=== PATIENT | female | born 1950 | race Caucasian/White ===

== ENCOUNTER 2019-08-29 11:40 | Outpatient (RCR) | payer MEDICARE, OTHER ==
[2019-07-13 13:00] VITALS: BP 135/72
[2019-07-13] MEDS: cefTRIAXone 1,000 MG/SWFI 10 ML IV PUSH IV SCH ×2 (14:11)
[2019-07-13 14:32] LABS: HEMOGLOBIN 11.7 G/DL (11.5-16.0); MEAN PLATELET VOLUME 10.1 FL (7.4-10.4); RED CELL DISTRIBUTION WIDTH 12.4 % (10.0-14.5); WHITE BLOOD COUNT 4.7 10^3/uL (4.3-11.0)
[2019-07-13 14:49] LABS: ALANINE AMINOTRANSFERASE 10 U/L (0-55); ALBUMIN 3.5 GM/DL (3.2-4.5); ALKALINE PHOSPHATASE 49 U/L (40-136); BILIRUBIN,TOTAL 0.3 MG/DL (0.1-1.0); BUN/CREATININE RATIO 13; CALCIUM 8.7 MG/DL (8.5-10.1); CARBON DIOXIDE 27 MMOL/L (21-32); CHLORIDE 107 MMOL/L (98-107); CREATININE SERUM 0.64 MG/DL (0.60-1.30); GFR ESTIMATED > 60; GLUCOSE 91 MG/DL (70-105); POTASSIUM 3.4 MMOL/L (3.6-5.0); SODIUM 141 MMOL/L (135-145)
[2019-07-14] MEDS: cefTRIAXone 1,000 MG/SWFI 10 ML IV PUSH IV SCH ×2 (09:40)
[2019-07-14 09:43] VITALS: BP 127/76
[2019-07-15 09:41] VITALS: BP 134/82
[2019-07-15] MEDS: cefTRIAXone 1,000 MG/SWFI 10 ML IV PUSH IV SCH ×2 (09:43)
[2019-07-16 09:15] VITALS: BP 135/81
[2019-07-16] MEDS: cefTRIAXone 1,000 MG/SWFI 10 ML IV PUSH IV SCH ×2 (09:16)
[2019-07-17] MEDS: cefTRIAXone 1,000 MG/SWFI 10 ML IV PUSH IV SCH ×2 (09:05)
[2019-07-17 09:15] VITALS: BP 131/83
[2019-07-18 13:35] VITALS: BP 115/62
[2019-07-18] MEDS: cefTRIAXone 1,000 MG/SWFI 10 ML IV PUSH IV SCH ×2 (13:46)
[2019-07-19] MEDS: cefTRIAXone 1,000 MG/SWFI 10 ML IV PUSH IV SCH ×2 (13:26)
[2019-07-19 13:31] VITALS: BP 136/84
[2019-07-20 11:19] VITALS: BP 114/66
[2019-07-20] MEDS: cefTRIAXone 1,000 MG/SWFI 10 ML IV PUSH IV SCH ×2 (11:26)
[2019-07-21] MEDS: cefTRIAXone 1,000 MG/SWFI 10 ML IV PUSH IV SCH ×2 (09:19)
[2019-07-21 09:23] VITALS: BP 121/58
[2019-07-22] MEDS: cefTRIAXone 1,000 MG/SWFI 10 ML IV PUSH IV SCH ×2 (09:32)
[2019-07-22 09:37] VITALS: BP 121/75
[2019-07-23] MEDS: cefTRIAXone 1,000 MG/SWFI 10 ML IV PUSH IV SCH ×2 (11:39)
[2019-07-23 11:46] VITALS: BP 127/84
[2019-07-24 09:33] VITALS: BP 126/75
[2019-07-24] MEDS: cefTRIAXone 1,000 MG/SWFI 10 ML IV PUSH IV SCH ×2 (09:44)
[2019-07-25 10:24] VITALS: BP 142/78
[2019-07-25] MEDS: cefTRIAXone 1,000 MG/SWFI 10 ML IV PUSH IV SCH ×2 (10:24)
[2019-07-26] MEDS: cefTRIAXone 1,000 MG/SWFI 10 ML IV PUSH IV SCH ×2 (13:41)
[2019-07-26 13:48] VITALS: BP 130/84
[2019-07-27] MEDS: cefTRIAXone 1,000 MG/SWFI 10 ML IV PUSH IV SCH ×2 (13:18)
[2019-07-27 13:30] VITALS: BP 130/92
[2019-07-28] MEDS: cefTRIAXone 1,000 MG/SWFI 10 ML IV PUSH IV SCH ×2 (09:42)
[2019-07-28 09:53] VITALS: BP 124/70
[2019-07-29 09:31] VITALS: BP 116/75
[2019-07-29] MEDS: cefTRIAXone 1,000 MG/SWFI 10 ML IV PUSH IV SCH ×2 (09:39)
[2019-07-30 10:31] VITALS: BP 126/79
[2019-07-30] MEDS: cefTRIAXone 1,000 MG/SWFI 10 ML IV PUSH IV SCH ×2 (10:31)
[2019-07-31] MEDS: cefTRIAXone 1,000 MG/SWFI 10 ML IV PUSH IV SCH ×2 (09:17)
[2019-07-31 09:20] LABS: HEMOGLOBIN 11.9 G/DL (11.5-16.0); MEAN PLATELET VOLUME 9.9 FL (7.4-10.4); RED CELL DISTRIBUTION WIDTH 12.3 % (10.0-14.5); WHITE BLOOD COUNT 5.1 10^3/uL (4.3-11.0)
[2019-07-31 09:22] VITALS: BP 134/79
[2019-07-31 09:40] LABS: ALANINE AMINOTRANSFERASE 8 U/L (0-55); ALBUMIN 3.8 GM/DL (3.2-4.5); ALKALINE PHOSPHATASE 53 U/L (40-136); BILIRUBIN,TOTAL 0.2 MG/DL (0.1-1.0); BUN/CREATININE RATIO 19; CALCIUM 8.5 MG/DL (8.5-10.1); CARBON DIOXIDE 27 MMOL/L (21-32); CHLORIDE 108 MMOL/L (98-107); CREATININE SERUM 0.74 MG/DL (0.60-1.30); GFR ESTIMATED > 60; GLUCOSE 93 MG/DL (70-105); SODIUM 140 MMOL/L (135-145); TOTAL PROTEIN 6.1 GM/DL (6.4-8.2)
[2019-08-01 09:35] VITALS: BP 132/85
[2019-08-01] MEDS: cefTRIAXone 1,000 MG/SWFI 10 ML IV PUSH IV SCH ×2 (09:42)
[2019-08-02] MEDS: cefTRIAXone 1,000 MG/SWFI 10 ML IV PUSH IV SCH ×2 (15:49)
[2019-08-02 15:54] VITALS: BP 126/61
[2019-08-03] MEDS: cefTRIAXone 1,000 MG/SWFI 10 ML IV PUSH IV SCH ×2 (10:52)
[2019-08-03 11:03] VITALS: BP 131/82
[2019-08-04] MEDS: cefTRIAXone 1,000 MG/SWFI 10 ML IV PUSH IV SCH ×2 (08:05)
[2019-08-04 08:08] VITALS: BP 118/78
[2019-08-05 08:08] VITALS: BP 123/77
[2019-08-05] MEDS: cefTRIAXone 1,000 MG/SWFI 10 ML IV PUSH IV SCH ×2 (08:16)
[2019-08-06] MEDS: cefTRIAXone 1,000 MG/SWFI 10 ML IV PUSH IV SCH ×2 (08:55)
[2019-08-06 08:56] VITALS: BP 119/74
[2019-08-07] MEDS: cefTRIAXone 1,000 MG/SWFI 10 ML IV PUSH IV SCH ×2 (09:38)
[2019-08-07 09:39] VITALS: BP 129/76
[2019-08-08] MEDS: cefTRIAXone 1,000 MG/SWFI 10 ML IV PUSH IV SCH ×2 (09:32)
[2019-08-08 09:33] VITALS: BP 126/77
[2019-08-09 11:30] VITALS: BP 123/76
[2019-08-09] MEDS: cefTRIAXone 1,000 MG/SWFI 10 ML IV PUSH IV SCH ×2 (11:38)
[2019-08-10 12:40] VITALS: BP 140/71
[2019-08-10] MEDS: cefTRIAXone 1,000 MG/SWFI 10 ML IV PUSH IV SCH ×2 (12:41)
[2019-08-10 12:53] LABS: HEMOGLOBIN 12.2 G/DL (11.5-16.0); MEAN PLATELET VOLUME 9.6 FL (7.4-10.4); RED CELL DISTRIBUTION WIDTH 12.5 % (10.0-14.5); WHITE BLOOD COUNT 5.4 10^3/uL (4.3-11.0)
[2019-08-11 10:35] VITALS: BP 124/81
[2019-08-11] MEDS: cefTRIAXone 1,000 MG/SWFI 10 ML IV PUSH IV SCH ×2 (10:43)
[2019-08-11 11:26] LABS: ALANINE AMINOTRANSFERASE 12 U/L (0-55); ALKALINE PHOSPHATASE 55 U/L (40-136); BILIRUBIN,TOTAL 0.4 MG/DL (0.1-1.0); BUN/CREATININE RATIO 17; CALCIUM 8.9 MG/DL (8.5-10.1); CARBON DIOXIDE 25 MMOL/L (21-32); CHLORIDE 105 MMOL/L (98-107); GFR ESTIMATED > 60; GLUCOSE 84 MG/DL (70-105); POTASSIUM 3.8 MMOL/L (3.6-5.0); SODIUM 140 MMOL/L (135-145); TOTAL PROTEIN 6.6 GM/DL (6.4-8.2)
[2019-08-12] MEDS: cefTRIAXone 1,000 MG/SWFI 10 ML IV PUSH IV SCH ×2 (10:40)
[2019-08-12 10:44] VITALS: BP 136/77
[2019-08-13] MEDS: cefTRIAXone 1,000 MG/SWFI 10 ML IV PUSH IV SCH ×2 (12:14)
[2019-08-13 12:15] VITALS: BP 136/83
[2019-08-14 12:45] VITALS: BP 132/80
[2019-08-14] MEDS: cefTRIAXone 1,000 MG/SWFI 10 ML IV PUSH IV SCH ×2 (12:52)
[2019-08-15 12:05] VITALS: BP 113/72
[2019-08-15] MEDS: cefTRIAXone 1,000 MG/SWFI 10 ML IV PUSH IV SCH ×2 (12:09)
[2019-08-17 12:08] VITALS: BP 126/83
[2019-08-24 08:55] VITALS: BP 134/68
[2019-08-24 09:00] LABS: HEMOGLOBIN 12.5 G/DL (11.5-16.0); MEAN PLATELET VOLUME 10.2 FL (7.4-10.4); RED CELL DISTRIBUTION WIDTH 12.4 % (10.0-14.5); WHITE BLOOD COUNT 4.6 10^3/uL (4.3-11.0)
[2019-08-24 09:20] LABS: ALANINE AMINOTRANSFERASE 11 U/L (0-55); ALBUMIN 3.9 GM/DL (3.2-4.5); ALKALINE PHOSPHATASE 55 U/L (40-136); BILIRUBIN,TOTAL 0.3 MG/DL (0.1-1.0); BUN/CREATININE RATIO 20; CALCIUM 8.4 MG/DL (8.5-10.1); CARBON DIOXIDE 23 MMOL/L (21-32); CHLORIDE 106 MMOL/L (98-107); CREATININE SERUM 0.75 MG/DL (0.60-1.30); GFR ESTIMATED > 60; GLUCOSE 90 MG/DL (70-105); POTASSIUM 4.2 MMOL/L (3.6-5.0); SODIUM 140 MMOL/L (135-145); TOTAL PROTEIN 6.3 GM/DL (6.4-8.2)
[~2019-08-29 11:40] MED LIST: CYCL10TA9 PO; NAPR-243 PO
[2019-08-29 11:55] VITALS: BP 134/68
== END 2019-08-29 11:55 | disposition home or self-care (01) ==
LOC: SDC 11:40
PROVIDERS: ATTEND Nurse Practitioner Family
DX: A69.20 Lyme disease, unspecified (principal); Z95.9 Presence of cardiac and vascular implant and graft, unspecified
CPT/HCPCS: 36415; 36569; 76937; 80053; 85027; 96374; 99211; 99212

== ENCOUNTER → 2023-01-03 | Outpatient (RCR) | payer MEDICARE, OTHER ==
[2022-12-23 13:20] VITALS: BP 142/97
[2022-12-23] MEDS: cefTRIAXone 1 GM/NS 50 ML IVPB IV SCH ×2 (14:21)
[2022-12-24 10:00] VITALS: BP 145/81
[2022-12-24] MEDS: cefTRIAXone 1 GM/NS 50 ML IVPB IV SCH ×2 (10:04)
[2022-12-25 08:45] VITALS: BP 143/81
[2022-12-25] MEDS: cefTRIAXone 1 GM/NS 50 ML IVPB IV SCH ×2 (08:46)
[2022-12-26] MEDS: cefTRIAXone 1 GM/NS 50 ML IVPB IV SCH ×2 (10:27)
[2022-12-26 10:29] VITALS: BP 138/81
[2022-12-27] MEDS: cefTRIAXone 1 GM/NS 50 ML IVPB IV SCH ×2 (11:19)
[2022-12-27 11:50] VITALS: BP 133/84
[2022-12-28] MEDS: cefTRIAXone 1 GM/NS 50 ML IVPB IV SCH ×2 (10:06)
[2022-12-28 10:08] VITALS: BP 148/86
[2022-12-29] MEDS: cefTRIAXone 1 GM/NS 50 ML IVPB IV SCH ×2 (09:41)
[2022-12-29 10:10] VITALS: BP 121/76
[2022-12-30] MEDS: cefTRIAXone 1 GM/NS 50 ML IVPB IV SCH ×2 (10:57)
[2022-12-30 11:20] VITALS: BP 121/83
[2022-12-31 10:55] VITALS: BP 146/95
[2022-12-31] MEDS: cefTRIAXone 1 GM/NS 50 ML IVPB IV SCH ×2 (11:00)
[2023-01-01] MEDS: cefTRIAXone 1 GM/NS 50 ML IVPB IV SCH ×2 (09:11)
[2023-01-01 09:30] VITALS: BP 122/84
[2023-01-02] MEDS: cefTRIAXone 1 GM/NS 50 ML IVPB IV SCH ×2 (09:19)
[2023-01-02 09:30] VITALS: BP 140/83
[~2023-01-03] VITALS: Ht 170.2 cm; Wt 61.4 kg
[2023-01-03 09:20] VITALS: BP 134/82
[2023-01-03] MEDS: cefTRIAXone 1 GM/NS 50 ML IVPB IV SCH ×2 (09:25)
== END | disposition home or self-care (01) ==
LOC: SDC 12-23 12:50
PROVIDERS: ATTEND Nurse Practitioner Family
DX: A69.20 Lyme disease, unspecified (principal)
CPT/HCPCS: 36569; 76937; 96365; C1751

== ENCOUNTER 2023-01-21 08:21 | Outpatient (RCR) | payer MEDICARE, OTHER ==
[2023-01-04] MEDS: cefTRIAXone 1 GM/NS 50 ML IVPB IV SCH ×2 (12:19)
[2023-01-04 12:40] VITALS: BP 143/92
[2023-01-05] MEDS: cefTRIAXone 1 GM/NS 50 ML IVPB IV SCH ×2 (09:01)
[2023-01-05 09:02] VITALS: BP 126/80
[2023-01-06 10:30] VITALS: BP 127/83
[2023-01-06] MEDS: cefTRIAXone 1 GM/NS 50 ML IVPB IV SCH ×2 (10:30)
[2023-01-07 09:50] VITALS: BP 134/84
[2023-01-07] MEDS: cefTRIAXone 1 GM/NS 50 ML IVPB IV SCH ×2 (09:56)
[2023-01-08 09:23] VITALS: BP 134/73
[2023-01-08] MEDS: cefTRIAXone 1 GM/NS 50 ML IVPB IV SCH ×2 (09:23)
[2023-01-08 09:49] VITALS: BP 134/73
[2023-01-09] MEDS: cefTRIAXone 1 GM/NS 50 ML IVPB IV SCH ×2 (09:18)
[2023-01-09 09:52] VITALS: BP 136/86
[2023-01-10 09:40] VITALS: BP 123/84
[2023-01-10] MEDS: cefTRIAXone 1 GM/NS 50 ML IVPB IV SCH ×2 (09:52)
[2023-01-11] MEDS: cefTRIAXone 1 GM/NS 50 ML IVPB IV SCH ×2 (09:07)
[2023-01-11 09:37] VITALS: BP 128/85
[2023-01-12] MEDS: cefTRIAXone 1 GM/NS 50 ML IVPB IV SCH ×2 (08:51)
[2023-01-12 09:15] VITALS: BP 120/81
[2023-01-13] MEDS: cefTRIAXone 1 GM/NS 50 ML IVPB IV SCH ×2 (09:25)
[2023-01-13 09:35] VITALS: BP 138/76
[2023-01-14 09:50] VITALS: BP 118/77
[2023-01-14] MEDS: cefTRIAXone 1 GM/NS 50 ML IVPB IV SCH ×2 (09:50)
[2023-01-15] MEDS: cefTRIAXone 1 GM/NS 50 ML IVPB IV SCH ×2 (09:11)
[2023-01-15 09:27] VITALS: BP 128/70
[2023-01-16 08:57] VITALS: BP 128/70
[2023-01-16] MEDS: cefTRIAXone 1 GM/NS 50 ML IVPB IV SCH ×2 (09:17)
[2023-01-17] MEDS: cefTRIAXone 1 GM/NS 50 ML IVPB IV SCH ×2 (09:51)
[2023-01-17 09:54] VITALS: BP 133/89
[2023-01-18 08:55] VITALS: BP 135/85
[2023-01-18] MEDS: cefTRIAXone 1 GM/NS 50 ML IVPB IV SCH ×2 (09:27)
[2023-01-19] MEDS: cefTRIAXone 1 GM/NS 50 ML IVPB IV SCH ×2 (08:59)
[2023-01-19 09:04] VITALS: BP 130/95
[2023-01-20] MEDS: cefTRIAXone 1 GM/NS 50 ML IVPB IV SCH ×2 (09:10)
[2023-01-20 09:30] VITALS: BP 131/75
[~2023-01-21] VITALS: Ht 170.2 cm; Wt 61.4 kg
[2023-01-21] MEDS: cefTRIAXone 1 GM/NS 50 ML IVPB IV SCH ×2 (08:35)
[2023-01-21 08:53] VITALS: BP 147/88
== END 2023-01-21 09:22 | disposition home or self-care (01) ==
LOC: SDC 08:21
PROVIDERS: ATTEND Nurse Practitioner Family
DX: A69.20 Lyme disease, unspecified (principal)
CPT/HCPCS: 96365